=== PATIENT | female | born 1935 | race Caucasian/White ===

== ENCOUNTER 2016-11-29 05:36 | Observation (INO) | payer OTHER ==
--- NOTE | ~2016-11-29 | EKG ---
PATIENT: CHRISTEL HESS UNIT #: [id number] Ventricular Rate: 60 BPM Atrial Rate: 60 BPM P-R Interval: 196 ms QRS Duration: 88 ms Q-T Interval: 456 ms QTC Calculation(Bezet): 456 ms P Bandera: 80 degrees Calculated R Bandera: 71 degrees Calculated T Bandera: 67 degrees Diagnosis Line: Normal sinus rhythm Diagnosis Line: Normal ECG Diagnosis Line: When compared with ECG of 04-FEB-2015 10:12, Diagnosis Line: No significant change was found Diagnosis Line: Confirmed by REN BARRON MD ([id number]) on Diagnosis Line: 12/01/2016 1:12:58 PM INTERPRETING MD: FESTUS
--- NOTE | ~2016-11-29 | HP ---
Unit #: [id number] #: [id number] Patient: CHRISTEL HESS [id number] [facility] [place] [facility]. [place], [place] [address] [id number] E MR#: [id number] NAME: CHRISTEL HESS ROOM: Age: 81 Sex: F Admission Date: 11/29/2016 : 1935 Attending Physician: Landy Monroe Pa-C Primary Care Physician: Misty King M.D. HISTORY AND PHYSICAL CHIEF COMPLAINT Nausea, vomiting, abdominal pain. HISTORY OF PRESENT ILLNESS The patient is an 81-year-old female with past medical history of end-stage renal disease on dialysis, hypertension, hyperlipidemia, diastolic dysfunction, renal artery stenosis, gout, chronic anemia who presented to the emergency department for evaluation of the above. The patient states that she was in her usual state of health until the morning of admission when she felt dizzy. She had been working in the yard on the day prior to admission planting [employer] and states that she felt somewhat tired on the evening prior to admission. She decided she would go to bed early. She woke from sleep around 2:30 on the morning of admission to use the bathroom and felt like the room was "spinning." She states that she had loose stool. She went back to sleep. She ultimately woke up and the dizzy feeling persisted. She states that it is similar to when she has had vertigo in the past. She felt generally weak. She has had a total of four bouts of nonbloody diarrhea. She states that she did have some associated abdominal cramping that is now resolved. She has also had nausea but no vomiting. Upon arrival in the emergency department, initial pulse and blood pressure were 70 and 150/64 respectively. Laboratory is notable for potassium of 6.1, BUN and creatinine 69 and 6.9 respectively. She is currently receiving dialysis. She also received calcium gluconate as well as 10 units of regular insulin, an amp of D50 and an amp of sodium bicarb in the emergency department. She is being admitted to [facility] for evaluation and further treatment. PAST MEDICAL HISTORY 1. Admission to [facility], August 20 through August 21, 2013, for acute pulmonary edema. She underwent an echocardiogram during that admission that showed an ejection fraction of 50% to 55% with nfax-nv-okbcjrwk mitral regurgitation, erfe-cj-vngfeann tricuspid regurgitation, mild pulmonic valvular regurgitation. Right ventricular systolic pressure was elevated at 50 mmHg. 2. Diastolic dysfunction with ejection fraction of 50% to 55% on echocardiogram from August 2013. The patient has seen Dr. Núñez in the past. 3. End-stage renal disease on dialysis: The patient receives dialysis Monday, , Monday. She is followed by Dr. Saldana. 4. Hypertension. Unit #: [id number] #: [id number] Patient: CHRISTEL HESS 5. Hyperlipidemia. 6. History of renal artery stenosis, status post angioplasty on one side and stent placement on the other. 7. Gout. 8. Pulmonary hypertension. 9. Chronic anemia. PAST SURGICAL HISTORY 1. Renal artery angioplasty/stent placement. 2. Fistula placement for dialysis. SOCIAL HISTORY The patient lives with her . She stopped smoking over 45 years ago. There is no alcohol. FAMILY HISTORY Notable for coronary artery disease. ALLERGIES Sulfa. HOME MEDICATIONS 1. Vitamin D 1000 units daily. 2. Zyloprim 100 mg daily. 3. Cranberry 200 mg daily. 4. Lasix 20 mg daily. 5. Norvasc 10 mg daily. 6. Losartan 50 mg twice daily. 7. Toprol XL 100 mg twice daily. 8. Lipitor 20 mg daily. REVIEW OF SYSTEMS A complete review of systems is negative except as indicated in the HPI. DIAGNOSTIC STUDIES LABORATORY: Troponin is less than 0.05. Comprehensive metabolic panel notable for potassium of 6.1, CO2 of 20, BUN and creatinine 69 and 6.9 respectively. Alkaline phosphatase is 113. Lipase is 84. Urinalysis is notable for 3+ protein. Complete blood count notable for hemoglobin and hematocrit of 10.2 and 31.7 respectively. IMAGING: Chest x-ray shows slight interval increase in size of the cardiac silhouette with pulmonary venous distention and mild diffuse interstitial change concerning for mild interstitial edema. CARDIOVASCULAR: EKG shows normal sinus rhythm with rate of 60 beats per minute. T waves are peaked in the lateral leads. PHYSICAL EXAMINATION VITAL SIGNS: Temperature is 97.7, pulse 70, respirations 16, blood pressure 150/64, oxygen saturation is 98% on room air. GENERAL: The patient is a female who is awake and alert in no acute distress. HEENT: The head is atraumatic. Mucous membranes are moist. NECK: Supple. Trachea is midline. CARDIOVASCULAR: Regular rate and rhythm. LUNGS: Clear to auscultation bilaterally with no increased work of breathing. Unit #: [id number] #: [id number] Patient: CHRISTEL HESS ABDOMEN: Soft, nontender with bowel sounds present in all four quadrants. EXTREMITIES: Nontender with no pedal edema. NEUROLOGIC: The patient is awake and alert. She follows commands. PSYCHIATRIC: Mood and affect are normal. The patient is cooperative. SKIN: Skin of examined areas is warm and dry. ASSESSMENT The patient is an 81-year-old female: 1. Hyperkalemia: The patient received calcium gluconate, 10 units of regular insulin, an amp of D50, an amp of bicarb in the emergency department. She is currently receiving dialysis. She is on Losartan which could be contributing as well. 2. End-stage renal disease on dialysis Monday, , Monday. 3. Vertigo. 4. General weakness. 5. Hypertension. 6. Hyperlipidemia. 7. Diastolic dysfunction with ejection fraction as noted above. 8. Renal artery stenosis, status post angioplasty and stent placement. 9. Gout. 10. Chronic anemia: The patient's hemoglobin was 12.7 on February 04, 2015. It is 10.2 today. PLAN 1. Admit to intermediate level for observation. 2. Healthy heart renal diet. 3. Bedrest. 4. Fall precautions. 5. PT/OT to evaluate and treat. 6. Orthostatics q. shift. 7. Consult Dr. Leslie regarding end-stage renal disease and hyperkalemia. 8. Serial cardiac enzymes. 9. Strict ins and outs. 10. Hold Losartan due to hyperkalemia. 11. P.r.n. Zofran. 12. Repeat labs in the morning. 13. Additional workup and consultants based on above. 14. SCDs for deep venous thrombosis prophylaxis. Dictated by Francesca Roth M.D. Howard TD: 11/29/2016 12:23 JOB #: [id number] Unit #: [id number] #: [id number] Patient: CHRISTEL HESS HISTORY AND PHYSICAL Page 1 of 1 X Francesca Roth MD X HISTORY AND PHYSICAL
--- NOTE | ~2016-11-29 | CO ---
Unit #: [id number] #: [id number] Patient: CHRISTEL DAILY [id number] [address] [address] [id number] I MR#: [id number] NAME: CHRISTEL DAILY. ROOM: 337 Age: 81 Sex: F Admission Date: 11/29/2016 : 1935 Attending Physician: Francesca Roth M.D. Primary Care Physician: Misty King M.D. Consultation Date: 11/29/2016 CONSULTATION REPORT REASON FOR CONSULT Hyperkalemia and dialysis needs. HISTORY OF PRESENT ILLNESS Ms. Daily is a very pleasant 81-year-old white female, who states that she has been on dialysis for about two years with Dr. Malachi Saldana, who was admitted for various complaints including some vertigo and dizziness-type symptoms with abdominal pain, dry heaves, and some loose bowel movements overnight. The patient states that she worked out in her yard potting plants and carrying things for a good portion of the day yesterday when it was fairly warm outside. She says that she thinks she "over did it." I was called because of hyperkalemia on morning labs. She has not had dialysis since her scheduled treatment on Monday. She denies any chest discomfort or shortness of breath. No urinary complaints, no fevers or chills. PAST MEDICAL HISTORY Significant for: 1. End stage renal disease. 2. Hypertension. 3. Diastolic congestive heart failure. 4. Renal artery stenosis with previous stenting. 5. Gout. 6. Hyperlipidemia. 7. Secondary hyperparathyroidism. PAST SURGICAL HISTORY 1. She has had renal artery stents. 2. She has had a fistula placed in her arm. MEDICATIONS Home meds are as follows: 1. Losartan 50 mg twice a day. 2. Toprol XL 100 mg twice a day. 3. Lipitor 20 mg a day. 4. Vitamin D daily. 5. Allopurinol 100 mg a day. 6. Cranberry extract daily. 7. Lasix 20 mg a day. 8. Norvasc 10 mg a day. ALLERGIES She has a coded allergy to sulfa drugs. Unit #: [id number] #: [id number] Patient: CHRISTEL DAILY FAMILY HISTORY Noncontributory to the current issues. SOCIAL HISTORY She is . I did discuss these issues with her who is hard of hearing. She is a former smoker. No alcohol or drug abuse. REVIEW OF SYSTEMS A complete twelve point review of systems was completed with the above findings. In addition, she has not had a headache. No nosebleed, sore throat or earache. No chest pain or palpitations. No cough or hemoptysis, no hematemesis. No bright red blood per rectum or melena. No dysuria or hematuria. No swelling, no rashes, no itching, no flank pain, no chills, no night sweats or hot flashes no intolerance to heat or cold, no bleeding issues. Unless otherwise indicated, the review of systems was negative PHYSICAL EXAMINATION VITAL SIGNS: The patient is afebrile. Pulse 64, respiratory rate 16, blood pressure 134/109. GENERAL: This is a pleasant 81-year-old white female who is alert and oriented, currently in no acute distress. HEENT: Head is atraumatic, normocephalic. Eyes show pink conjunctivae but no scleral icterus. No nasal drainage or nosebleed. Oropharynx is slightly dry. No thrush. NECK: No rigidity. HEART: Regular rate and rhythm with a soft murmur present. No rub appreciated. LUNGS: Clear anteriorly with no wheezing or rhonchi. Breathing is nonlabored. ABDOMEN: Soft, nontender. Bowel sounds are present. EXTREMITIES: No lower extremity clubbing, cyanosis or pitting edema. SKIN: Dry without rashes. MUSCULOSKELETAL: No joint effusions noted. VASCULAR EXAM: The patient does have an arm fistula in place with good bruit and thrill. NEUROLOGICAL EXAM: Cranial nerves are grossly intact with no gross motor deficits. LYMPHATIC EXAM: There is no neck cervical lymphadenopathy. PSYCHIATRIC EXAM: Mood and affect appear normal. DIAGNOSTIC STUDIES LABORATORY: Troponin was negative. Chemistry this morning - potassium was 6.1, bicarb 20, BUN and creatinine 69 and 6.9 respectively. Lipase was just a little high at 84. Urinalysis did show 3+ protein, otherwise unremarkable. CBC was remarkable only for a hemoglobin of 10.2. ASSESSMENT AND PLAN 1. Hyperkalemia: The patient received emergent treatment in the emergency room with calcium gluconate, insulin and bicarb. I called in stat dialysis and they are here getting ready to start. This should correct her hyperkalemia. 2. End stage renal disease: Her normal dialysis days are Monday, , Monday and we will keep her on that schedule while she is Unit #: [id number] #: [id number] Patient: CHRISTEL DAILY here. 3. Hypertension: Home medicines can be renewed. 4. History of diastolic congestive heart failure with pulmonary hypertension: She appears well compensated today. 5. History of renovascular disease and stenting. 6. Recent dizziness and vertigo which seems to have improved. She may actually have gotten herself a little dehydrated yesterday working in the yard. 7. History of GI upset. Medicine will be admitting and working up. I would like to thank you for this consultation and the opportunity to participate in the evaluation and care of Ms. Daily. Dictated by... Jasbir Leslie Jr., M.D. NINA/katy TD: 11/30/2016 06:06 JOB #: [id number] CONSULTATION REPORT Page 1 of 1 X Jasbir Leslie MD CONSULTATION REPORT
--- NOTE | ~2016-11-29 | DS ---
Unit #: [id number] #: [id number] Patient: CHRISTEL HESS [id number] [address] [address] [id number] I MR#: [id number] NAME: CHRISTEL HESS. ROOM: 337 Age: 81 Sex: F Admission Date: 11/29/2016 : 1935 Discharge Date: 11/30/2016 Attending Physician: Sergio Shanks M.D. Primary Care Physician: Misty King M.D. DISCHARGE SUMMARY DISCHARGE DIAGNOSES 1. Hyperkalemia, resolved after treatment with Kayexalate, calcium gluconate, sodium bicarbonate as well as emergent dialysis. 2. End-stage renal disease on dialysis Monday, , and Monday followed by Dr. Saldana. 3. Possible acute gastroenteritis, resolved at this time. 4. Essential hypertension. 5. History of diastolic heart failure fluid balance. 6. Dizziness, no syncope. 7. History of dyslipidemia. 8. Chronic anemia. 9. History of gout. 10. History of renal artery stenosis. PROCEDURE The patient had an emergent dialysis under Dr. Leslie's orders on admission. CONSULTANTS Nephrology, Dr. Leslie and Dr. Saldana. DIAGNOSTIC STUDIES LABORATORY: Today's labs include BMP of glucose 83, BUN 30, creatinine 4.4, sodium 137, potassium 4.8, chloride 102, CO2 is 25, calcium 8.2, protein 6.0, albumin 3.1, total bilirubin 0.6, direct bilirubin 0.1, indirect bilirubin 0.5, AST 23, ALT 16, alkaline phosphatase 102. Lipase 84. Cardiac enzymes were unremarkable. CBC with WBC 6.4, RBC 3.15, hemoglobin 9.4, hematocrit 29.4, MCV 93.4, MCH 29.8, MCHC 31.9, RDW 14.0, platelets 139, MPV 8.1. Urinalysis unremarkable. IMAGING: Chest x-ray 11/29/2016. Impression: Slight interval increase in size of the cardiac silhouette with pulmonary venous distention and mild diffuse interstitial change, most concerning for mild interstitial edema. No pleural effusion is seen. HOSPITAL COURSE The patient is a pleasant 81-year-old female with past medical history of renal artery stenosis, status post stenting; end-stage renal disease on dialysis followed by Dr. Saldana on Monday, , and Monday; diastolic heart failure with an ejection fraction of 50% to 55%; essential hypertension; hyperlipidemia; gout; pulmonary artery hypertension; chronic anemia who was brought to the emergency room due to symptoms of nausea, vomiting, abdominal pain and dizziness. The patient states that she had planted some armida bushes on the day prior to admission. She came in drank Unit #: [id number] #: [id number] Patient: CHRISTEL HESS J a lot of water, went to bed, took and Ambien and woke up with symptoms of nausea and vomiting and feeling that everything was spinning. She had googled the symptoms and felt that the "vertigo" needed to be assessed. Therefore, she presented to the emergency department for further evaluation. In the emergency department, she was found to have stable vitals but with potassium 6.1, BUN 68, creatinine 6.9. She was given calcium gluconate as well as 10 amps of Regular insulin and D50 amp as well as an amp of bicarb. Nephrology with Dr. Leslie was notified who had written order for emergent dialysis and patient was admitted for further evaluation. At the time of my assessment, symptoms of dizziness and nausea and vomiting. The patient stated that she had diarrhea only with the Kayexalate that was given. At this time, patient stated that she felt that she is back to her normal baseline. Dr. Saldana had seen her this morning and had felt that patient is stable for discharge. The patient will follow up with Nephrology as outpatient to continue with dialysis Monday, , and Monday. DISCHARGE CONDITION Stable. DISCHARGE DISPOSITION To home. FOLLOWUP She is to follow up with Nephrology routinely. DIET Resume her renal diet. DISCHARGE MEDICATIONS 1. Xanax 0.5 mg p.o. h.s. 2. Cranberry 200 mg p.o. daily. 3. Norvasc 10 mg p.o. daily. 4. Toprol XL 100 mg p.o. b.i.d. 5. Lasix 20 mg p.o. daily. 6. Lipitor 20 mg p.o. daily. 7. Losartan 50 mg p.o. b.i.d. 8. Allopurinol 100 mg p.o. daily. 9. Vitamin D 1000 units p.o. daily. Dictated by... Anshul Lewis PA-C for Harriet May/leana TD: 12/01/2016 21:52 JOB #: [id number] Unit #: [id number] #: [id number] Patient: CHRISTEL HESS DISCHARGE SUMMARY Page 1 of 1 X X DISCHARGE SUMMARY
--- NOTE | ~2016-11-29 | CR72 ---
[facility] A Service of [facility] & [facility] RADIOLOGY TEXT RESULTS PATIENT: CHRISTEL HESS [facility] [id number] : [birth year] UNIT #: [id number] AGE: [address]: Francesca Roth MD SEX: F ORDER DR: [id number] [facility] [place] [address] [facility]. [place], [place] [address] [id number] E MR#: [id number] Acc #: [id number] NAME: CHRISTEL HESS : 1935 SEX: F STUDY DATE/TIME: 11/29/2016 08:27 UNIT: [facility] ROOM: STUDY DESCRIPTION: CR Chest Single View Portable Attending Physician: Landy Monroe Pa-C Ordering Physician: Landy Monroe Pa-C Primary Care Physician: Misty King M.D. MEDICAL IMAGING REPORT This report is preliminary unless electronic signature is present EXAM Chest portable 11/29/2016 0844 hours CLINICAL HISTORY 81-year-old with weakness, dizziness and shortness of air this morning. COMPARISON 02/04/2015 FINDINGS Portable upright chest demonstrates mild cardiac enlargement increased from 02/04/2015. There is pulmonary venous distension and mild diffuse bilateral interstitial change likely mild edema. There are no effusions. IMPRESSION Slight interval increase in size of the cardiac silhouette with pulmonary venous distension and mild diffuse interstitial change most concerning for a mild interstitial edema. No pleural effusion is seen. Dictated by... Razia White M.D. THIS IS AN ELECTRONICALLY VERIFIED REPORT Razia White M.D. at 11/29/2016 2:30 PM MELODIE/huan TD: 11/29/2016 11:15 JOB #: [id number] MEDICAL IMAGING REPORT Page 1 of 1 COPY
[~2016-11-29 05:36] MED LIST: ALPRAZOLAM PO; ANTIVERT PO; CLONIDINE PO; CLONIDINE TOP; CRANBERRY SUPPLEMENT PO; DEMADEX PO; FERROUS SU325 ( 65 ) PO; FISH OIL 1,0001 CAP PO; HYDRALAZINE HC100 MG PO; LASIX PO; LIPITOR PO; LIPITOR20 MG PO; LISINOPRIL PO; MULTI-VITAMIN1 TAB PO; NORVASC PO; TOPROL XL PO; TOPROL XL100 MG PO; TYLOX 5/500 CAP1 CAP PO; VITAMIN D 4001 UDTAB PO; VITAMIN D1000 UNIT PO; XANAX0.5 M1 PO; ZEMPLAR1 MCG PO; ZYLOPRIM PO; ZYLOPRIM100 MG PO
[2016-11-29 08:15] LABS: BASOPHIL% 0.6 % (0-2.5); EOSINOPHIL% 0.5 % (0.0-7.0); HEMATOCRIT 31.7 % (35.0-45.0); HEMOGLOBIN 10.2 gm/dL (12.0-16.0); LYMPHOCYTE# 1.1 X10e3 (1.0-3.5); LYMPHOCYTE% 15.6 % (17.0-45.0); MEAN CORPUSCULAR HEMOGLOBIN 29.9 PG (28-34); MEAN CORPUSCULAR HGB CONC 32.1 g/dL (30-36); MEAN PLATELET VOLUME 7.4 FL (6.5-11.5); MONOCYTE# 0.4 X10e3 (0-1.0); MONOCYTE% 5.1 % (3.0-12.0); NEUTROPHIL# 5.5 X10e3 (1.5-7.1); NEUTROPHIL% 78.2 % (40-75); PLATELET COUNT 142 X10e3 (140-420); RED BLOOD COUNT 3.42 X10e (3.90-5.30); RED CELL DISTRIBUTION WIDTH 17.9 % (11.0-15.5); WHITE BLOOD COUNT 7.1 X10e3 (4.0-10.5)
[2016-11-29 08:15] LABS: URINE SOURCE CLEAN CATCH
[2016-11-29 08:16] LABS: DIFF IND NO
[2016-11-29 08:24] LABS: URINE APPEARANCE CLEAR; URINE BILIRUBIN NEG (NEG); URINE BLOOD TRACE (NEG); URINE COLOR YELLOW; URINE GLUCOSE NEG (NEG); URINE KETONE NEG (NEG); URINE LEUKOCYTE ESTERASE NEG (NEG); URINE NITRATE NEG (NEG); URINE PROTEIN 3+ (NEG); URINE UROBILINOGEN 0.2 MG/DL (NEG)
[2016-11-29 08:27] LABS: URBCS1 AUWI 0-2 /[HPF] (0-2); URINE BACTERIA AUWI NEG (NEGATIVE); URINE SQUAMOUS EPITHELIAL CELL NONE SEEN /[HPF]; UWBCS1 AUWI 0-2 (0-5)
[2016-11-29 08:29] LABS: CULTURE INDICATED? NO
[2016-11-29 08:42] LABS: ALBUMIN SERUM 3.9 g/dL (3.5-5.0); BILIRUBIN, DIRECT 0.1 mg/dL (0.0-0.2); BILIRUBIN,INDIRECT 0.5 mg/dL (0.0-0.9); BILIRUBIN,TOTAL 0.6 mg/dL (0.2-2.0); CALCIUM SERUM 8.4 mg/dL (8.4-10.2); CREATININE SERUM 6.9 mg/dL (0.6-1.4); PROTEIN TOTAL SERUM 7.5 g/dL (6.0-8.3)
[2016-11-29 08:45] LABS: POTASSIUM 6.1 mmol/L (3.5-5.1)
[2016-11-29 09:20] LABS: POC - CKMB 1.3 ng/mL (0.0-7.9); POC - TROPONIN <0.05 ng/mL (<=0.05)
[2016-11-29] MEDS ORDERED: ZYLOPRIM100 MG PO (10:05)
[2016-11-29] MEDS ORDERED: LOSARTAN POTASS50 MG PO (10:06)
[2016-11-29 15:18] LABS: CK TOTAL 50 IU/L (26-140)
[2016-11-29] MEDS ORDERED: XANAX0.5 M1 PO (15:43)
[2016-11-29 21:34] LABS: CK TOTAL 50 IU/L (26-140)
[2016-11-30 05:48] LABS: HEMATOCRIT 29.4 % (35.0-45.0); HEMOGLOBIN 9.4 gm/dL (12.0-16.0); MEAN CELL VOLUME 93.4 FL (83-96); MEAN CORPUSCULAR HEMOGLOBIN 29.8 PG (28-34); MEAN CORPUSCULAR HGB CONC 31.9 g/dL (30-36); MEAN PLATELET VOLUME 8.1 FL (6.5-11.5); RED BLOOD COUNT 3.15 X10e (3.90-5.30); WHITE BLOOD COUNT 6.4 X10e3 (4.0-10.5)
[2016-11-30 06:57] LABS: ALBUMIN SERUM 3.1 g/dL (3.5-5.0); BILIRUBIN,TOTAL 0.6 mg/dL (0.2-2.0); BUN/CREATININE RATIO 6.81; CALCIUM SERUM 8.2 mg/dL (8.4-10.2); GLOM FILT RATE Estimated 8.7 mL/min (>60); POTASSIUM 4.8 mmol/L (3.5-5.1)
[2016-11-30 07:10] LABS: CREATININE SERUM 4.4 mg/dL (0.6-1.4)
[2017-03-10] MEDS ORDERED: ZYLOPRIM100 MG PO (05:42)
[2017-03-10] MEDS ORDERED: FLONASE 0.05% N16 G1 (05:43)
[2017-03-10] MEDS ORDERED: CRANBERRY200 MG PO (10:05)
[2017-03-10] MEDS ORDERED: VITAMIN D1000 UNIT PO (10:05)
[2017-03-10] MEDS ORDERED: LASIX20 MG PO (10:05)
[2017-03-10] MEDS ORDERED: LOSARTAN POTASS50 MG PO (10:06)
[2017-03-10] MEDS ORDERED: NORVASC10 MG PO (10:06)
[2017-03-10] MEDS ORDERED: TOPROL XL100 MG PO (10:06)
[2017-03-10] MEDS ORDERED: LIPITOR20 MG PO (10:06)
[2017-03-10] MEDS ORDERED: CATAPRES0.1 MG PO (15:02)
[2017-03-10] MEDS ORDERED: XANAX0.5 M1 PO (16:30)
== END 2016-11-30 17:52 | disposition home or self-care (01) ==
LOC: CED 05:36 → CEDOF 12:05 → C3A PCU 12:36 → CED 12:36 → C3A PCU 12:36 → CEDOF 15:22 → C3A PCU 15:22
PROVIDERS: Family Medicine; Physician Assistant Medical
DX: E87.5 Hyperkalemia (principal); I13.2 Hypertensive heart and chronic kidney disease with heart failure and with stage 5 chronic kidney disease, or end stage renal disease; N18.6 End stage renal disease; I50.30 Unspecified diastolic (congestive) heart failure; Z99.2 Dependence on renal dialysis; D63.1 Anemia in chronic kidney disease; I51.7 Cardiomegaly; I27.2 Other secondary pulmonary hypertension; E78.5 Hyperlipidemia, unspecified; R53.1 Weakness; R42 Dizziness and giddiness; M10.9 Gout, unspecified; Z79.899 Other long term (current) drug therapy; Z87.891 Personal history of nicotine dependence; Z82.49 Family history of ischemic heart disease and other diseases of the circulatory system; Z95.820 Peripheral vascular angioplasty status with implants and grafts; Z88.2 Allergy status to sulfonamides
CPT/HCPCS: 71010; 80048; 80053; 80076; 81003; 82550; 82553; 83690; 84484; 85025; 85027; 87340; 93005; 96374; 96375; 97161; 97165; 99291; G0378; G8978-GP; G8979-GP; G8980-GP; G8987-GO; G8988-GO; G8989-GO; J1644; J2405

== ENCOUNTER 2016-12-14 02:44 | Emergency (ER) | payer OTHER ==
--- NOTE | ~2016-12-14 | CR72 ---
[facility] A Service of [facility] & [facility] RADIOLOGY TEXT RESULTS PATIENT: CHRISTEL HESS LOCATION: [facility] : [birth year] UNIT #: [id number] AGE: [address]: Stacy Maddox MD SEX: F ORDER DR: [id number] [facility] [address] [facility]. [place], [place] [address] [id number] E MR#: [id number] Acc #: [id number] NAME: CHRISTEL HESS : 1935 SEX: F STUDY DATE/TIME: 12/14/2016 3:38 UNIT: [facility] ROOM: STUDY DESCRIPTION: CR Chest Single View Portable Attending Physician: Stacy Maddox M.D. Ordering Physician: Stacy Maddox M.D. Primary Care Physician: Misty King M.D. MEDICAL IMAGING REPORT This report is preliminary unless electronic signature is present EXAM Chest x-ray 12/14/2016 HISTORY 81-year-old female in the ED complaining of new onset shortness of air beginning earlier tonight. History of congestive heart failure. Renal dialysis. TECHNIQUE AP portable chest x-ray. FINDINGS Mild cardiomegaly is stable. Pulmonary venous redistribution, mild diffuse interstitial edema and tiny bilateral pleural effusions, new or increased since 11/29/2016, compatible with congestive heart failure. Thoracolumbar spinal curvature. Old healed right proximal humerus fracture. IMPRESSION Cardiomegaly with vascular congestion including mild interstitial edema and tiny pleural effusions. Dictated by... Marc Marie M.D. THIS IS AN ELECTRONICALLY VERIFIED REPORT Marc Marie M.D. at 12/14/2016 5:52 AM KEY/tejal TD: 12/14/2016 04:29 JOB #: [id number] [facility] A Service of [facility] & [facility] RADIOLOGY TEXT RESULTS PATIENT: CHRISTEL HESS LOCATION: [facility] : [birth year] UNIT #: [id number] AGE: [address]: Stacy Maddox MD SEX: F ORDER DR: MEDICAL IMAGING REPORT Page 1 of 1 COPY
--- NOTE | ~2016-12-14 | EKG ---
PATIENT: CHRISTEL HESS UNIT #: [id number] Ventricular Rate: 62 BPM Atrial Rate: 62 BPM P-R Interval: 188 ms QRS Duration: 86 ms Q-T Interval: 450 ms QTC Calculation(Bezet): 456 ms P Pendleton: 78 degrees Calculated R Pendleton: 58 degrees Calculated T Pendleton: 71 degrees Diagnosis Line: Normal sinus rhythm Diagnosis Line: Normal ECG Diagnosis Line: When compared with ECG of 29-NOV-2016 08:39, Diagnosis Line: Nonspecific T wave abnormality now evident in Diagnosis Line: Anterior leads Diagnosis Line: Confirmed by ERIC MILLIGAN MD ([id number]) on 12/15/2016 Diagnosis Line: 6:26:25 PM INTERPRETING MD: SRINI MOLINA
[~2016-12-14 02:44] MED LIST changes: +LOSARTAN POTASS50 MG PO
[2016-12-14 03:46] LABS: POC - CKMB 1.3 ng/mL (0.0-7.9); POC - TROPONIN <0.05 ng/mL (<=0.05)
[2016-12-14 03:52] LABS: BASOPHIL# 0.1 X10e3 (0-0.3); BASOPHIL% 0.6 % (0-2.5); DIFF IND NO; EOSINOPHIL# 0.2 X10e3 (0-0.7); EOSINOPHIL% 1.8 % (0.0-7.0); HEMATOCRIT 28.1 % (35.0-45.0); HEMOGLOBIN 9.1 gm/dL (12.0-16.0); LYMPHOCYTE% 10.8 % (17.0-45.0); MEAN CELL VOLUME 93.5 FL (83-96); MEAN CORPUSCULAR HEMOGLOBIN 30.4 PG (28-34); MEAN CORPUSCULAR HGB CONC 32.5 g/dL (30-36); MEAN PLATELET VOLUME 7.3 FL (6.5-11.5); MONOCYTE# 0.8 X10e3 (0-1.0); MONOCYTE% 8.5 % (3.0-12.0); NEUTROPHIL# 7.1 X10e3 (1.5-7.1); NEUTROPHIL% 78.3 % (40-75); PLATELET COUNT 162 X10e3 (140-420); RED CELL DISTRIBUTION WIDTH 19.2 % (11.0-15.5)
[2016-12-14 04:06] LABS: PARTIAL THROMBOPLASTIN TIME 27.8 SECONDS (23.5-31.3)
[2016-12-14 04:19] LABS: ALBUMIN SERUM 3.5 g/dL (3.5-5.0); BILIRUBIN, DIRECT 0.1 mg/dL (0.0-0.2); BILIRUBIN,INDIRECT 0.8 mg/dL (0.0-0.9); BILIRUBIN,TOTAL 0.9 mg/dL (0.2-2.0); BUN/CREATININE RATIO 6.38; CALCIUM SERUM 8.3 mg/dL (8.4-10.2); CREATININE SERUM 4.7 mg/dL (0.6-1.4); MAGNESIUM 1.9 mg/dL (1.6-3.0); POTASSIUM 4.1 mmol/L (3.5-5.1); PROTEIN TOTAL SERUM 7.1 g/dL (6.0-8.3)
[2016-12-14 05:53] LABS: POC - CKMB 1.1 ng/mL (0.0-7.9); POC - TROPONIN <0.05 ng/mL (<=0.05)
[2017-03-10] MEDS ORDERED: ZYLOPRIM100 MG PO (05:42)
[2017-03-10] MEDS ORDERED: FLONASE 0.05% N16 G1 (05:43)
[2017-03-10] MEDS ORDERED: CRANBERRY200 MG PO (10:05)
[2017-03-10] MEDS ORDERED: LASIX20 MG PO (10:05)
[2017-03-10] MEDS ORDERED: VITAMIN D1000 UNIT PO (10:05)
[2017-03-10] MEDS ORDERED: LOSARTAN POTASS50 MG PO (10:06)
[2017-03-10] MEDS ORDERED: TOPROL XL100 MG PO (10:06)
[2017-03-10] MEDS ORDERED: LIPITOR20 MG PO (10:06)
[2017-03-10] MEDS ORDERED: NORVASC10 MG PO (10:06)
[2017-03-10] MEDS ORDERED: CATAPRES0.1 MG PO (15:02)
[2017-03-10] MEDS ORDERED: XANAX0.5 M1 PO (16:30)
== END 2016-12-14 07:25 | disposition home or self-care (01) ==
LOC: CED 02:44
PROVIDERS: Emergency Medicine
DX: I13.2 Hypertensive heart and chronic kidney disease with heart failure and with stage 5 chronic kidney disease, or end stage renal disease (principal); I50.30 Unspecified diastolic (congestive) heart failure; N18.6 End stage renal disease; R09.02 Hypoxemia; E78.5 Hyperlipidemia, unspecified; Z88.2 Allergy status to sulfonamides; Z79.899 Other long term (current) drug therapy
CPT/HCPCS: 71010; 80048; 80076; 82553; 83605; 83735; 84100; 84484; 85025; 85610; 85730; 93005; 99285

== ENCOUNTER 2017-02-09 05:09 | Emergency (ER) | payer OTHER ==
[~2017-02-09] VITALS: Ht 167.6 cm; Wt 63.5 kg
--- NOTE | ~2017-02-09 | CR72 ---
[facility] A Service of [facility] & [facility] RADIOLOGY TEXT RESULTS PATIENT: CHRISTEL HESS LOCATION: [facility] : [birth year] UNIT #: [id number] AGE: [address]: Tremaine Cast MD SEX: F ORDER DR: [id number] [facility] [address] [place], [place] [address] [id number] E MR#: [id number] Acc #: [id number] NAME: CHRISTEL HESS : 1935 SEX: F STUDY DATE/TIME: 02/09/2017 5:59 UNIT: [facility] ROOM: STUDY DESCRIPTION: CR Chest Single View Portable Attending Physician: Tremaine Cast M.D. Referring Physician: Misty King M.D. Ordering Physician: Venu Zambrano M.D. Primary Care Physician: Misty King M.D. MEDICAL IMAGING REPORT This report is preliminary unless electronic signature is present EXAM Portable chest HISTORY Cough, shortness of air onset this morning. History of CHF. COMPARISON 12/14/2016. FINDINGS Portable view of the chest demonstrates cardiomegaly. There is diffuse bilateral interstitial and alveolar infiltrates with increased pulmonary vascularity. Findings most compatible with CHF. Slight blunting of both CP angles suggests small effusions. Mild aortic atherosclerotic changes. No invasive tubes or lines. No pneumothorax. Dictated by... Nick Rutherford M.D. THIS IS AN ELECTRONICALLY VERIFIED REPORT Nick Rutherford M.D. at 02/09/2017 4:00 PM NE/norm TD: 02/09/2017 07:50 JOB #: [id number] MEDICAL IMAGING REPORT Page 1 of 1 COPY
--- NOTE | ~2017-02-09 | EKG ---
PATIENT: CHRISTEL HESS UNIT #: [id number] Ventricular Rate: 70 BPM Atrial Rate: 70 BPM P-R Interval: 162 ms QRS Duration: 78 ms Q-T Interval: 422 ms QTC Calculation(Bezet): 455 ms P [place]burn[place]: 81 degrees Calculated R [place]: 69 degrees Calculated T [place]: 61 degrees Diagnosis Line: Sinus rhythm with frequent Premature ventricular Diagnosis Line: complexes Diagnosis Line: Possible Left atrial enlargement Diagnosis Line: Borderline ECG Diagnosis Line: No previous ECGs available Diagnosis Line: Confirmed by ERIC MILLIGAN MD ([id number]) on 02/11/2017 Diagnosis Line: 8:11:17 AM INTERPRETING MD: SRINI MOLINA
[2017-02-09 06:29] LABS: BASOPHIL# 0.1 X10e3 (0-0.3); BASOPHIL% 0.8 % (0-2.5); EOSINOPHIL# 0.2 X10e3 (0-0.7); EOSINOPHIL% 1.6 % (0.0-7.0); HEMATOCRIT 33.9 % (35.0-45.0); HEMOGLOBIN 10.9 gm/dL (12.0-16.0); LYMPHOCYTE# 1.3 X10e3 (1.0-3.5); MEAN CELL VOLUME 94.3 FL (83-96); MEAN CORPUSCULAR HEMOGLOBIN 30.4 PG (28-34); MEAN CORPUSCULAR HGB CONC 32.2 g/dL (30-36); MEAN PLATELET VOLUME 7.2 FL (6.5-11.5); MONOCYTE% 8.9 % (3.0-12.0); NEUTROPHIL# 8.2 X10e3 (1.5-7.1); NEUTROPHIL% 76.7 % (40-75); PLATELET COUNT 165 X10e3 (140-420); RED CELL DISTRIBUTION WIDTH 18.6 % (11.0-15.5); WHITE BLOOD COUNT 10.7 X10e3 (4.0-10.5)
[2017-02-09 06:31] LABS: DIFF IND NO
[2017-02-09 06:38] LABS: PARTIAL THROMBOPLASTIN TIME 27.8 SECONDS (23.5-31.3); PROTHROMBIN TIME (PATIENT) 11.1 SECONDS (10.0-11.7)
[2017-02-09 06:50] LABS: ALBUMIN SERUM 3.8 g/dL (3.5-5.0); BILIRUBIN, DIRECT 0.2 mg/dL (0.0-0.2); BILIRUBIN,INDIRECT 0.7 mg/dL (0.0-0.9); BILIRUBIN,TOTAL 0.9 mg/dL (0.2-2.0); BUN/CREATININE RATIO 6.42; CALCIUM SERUM 8.5 mg/dL (8.4-10.2); POTASSIUM 4.8 mmol/L (3.5-5.1); PROTEIN TOTAL SERUM 7.3 g/dL (6.0-8.3)
[2017-03-10] MEDS ORDERED: ZYLOPRIM100 MG PO (05:42)
[2017-03-10] MEDS ORDERED: FLONASE 0.05% N16 G1 (05:43)
[2017-03-10] MEDS ORDERED: VITAMIN D1000 UNIT PO (10:05)
[2017-03-10] MEDS ORDERED: CRANBERRY200 MG PO (10:05)
[2017-03-10] MEDS ORDERED: LASIX20 MG PO (10:05)
[2017-03-10] MEDS ORDERED: LOSARTAN POTASS50 MG PO (10:06)
[2017-03-10] MEDS ORDERED: TOPROL XL100 MG PO (10:06)
[2017-03-10] MEDS ORDERED: NORVASC10 MG PO (10:06)
[2017-03-10] MEDS ORDERED: LIPITOR20 MG PO (10:06)
[2017-03-10] MEDS ORDERED: CATAPRES0.1 MG PO (15:02)
[2017-03-10] MEDS ORDERED: XANAX0.5 M1 PO (16:30)
== END 2017-02-09 08:41 | disposition home or self-care (01) ==
LOC: CED 05:09
PROVIDERS: Emergency Medicine
DX: I13.2 Hypertensive heart and chronic kidney disease with heart failure and with stage 5 chronic kidney disease, or end stage renal disease (principal); I50.9 Heart failure, unspecified; N18.6 End stage renal disease; F41.9 Anxiety disorder, unspecified; Z88.2 Allergy status to sulfonamides
CPT/HCPCS: 36415; 71010; 80048; 80076; 82553; 83605; 83880; 84484; 85025; 85610; 85730; 87040; 93005; 96374; 99285; J2405

== ENCOUNTER 2017-03-06 16:46 | Emergency (ER) | payer OTHER ==
[~2017-03-06] VITALS: Ht 167.6 cm; Wt 64.4 kg
--- NOTE | ~2017-03-06 | CT71 ---
[facility] A Service of [facility] RADIOLOGY TEXT RESULTS PATIENT: CHRISTEL HESS LOCATION: [facility] : [birth year] UNIT #: [id number] AGE: [address]: Stacy Maddox MD SEX: F ORDER DR: [id number] [facility] [address] [place], [place] [address] [id number] MR#: [id number] [facility] #: [id number] NAME: CHRISTEL HESS. : 1935 SEX: F STUDY DATE/TIME: 03/06/2017 18:07 UNIT: [facility] ROOM: STUDY DESCRIPTION: CT Head Wo Contrast Attending Physician: Stacy Maddox M.D. Ordering Physician: Stacy Maddox M.D. Primary Care Physician: Misty King M.D. MEDICAL IMAGING REPORT This report is preliminary unless electronic signature is present EXAM CT head without contrast, 03/06/2017 HISTORY 81-year-old female with head headache status post fall today. Hit right side of head. COMPARISON CT head 02/04/2015 TECHNIQUE Routine unenhanced axial images performed through the brain. This CT exam was performed with one or more of the following radiation dose reduction techniques: automatic exposure control, adjustment of mA and/or kV according to patient size, and iterative reconstruction. FINDINGS No hemorrhage, acute infarction, mass lesion, or abnormal extraaxial fluid collection. No midline shift or focal mass effect. Ventricular system normal in size and configuration. Mild generalized atrophy and mild chronic small vessel disease is stable. There is mild right frontoparietal scalp soft tissue swelling. No acute bony abnormality. Visualized paranasal sinuses are clear. Partial fluid opacification right-sided mastoid air cells. IMPRESSION 1. No acute intracranial abnormality. 2. Stable age-related atrophy and mild chronic small vessel disease. 3. Mild right frontoparietal scalp soft tissue swelling. No acute bony abnormality. 4. Partial fluid opacification of the right-sided mastoid air cells. [facility] A Service of [facility] RADIOLOGY TEXT RESULTS PATIENT: CHRISTEL HESS LOCATION: [facility] : 31 UNIT #: [id number] AGE: [address]: Stacy Maddox MD SEX: F ORDER DR: Dictated by... Ernie Robbins M.D. THIS IS AN ELECTRONICALLY VERIFIED REPORT Ernie Robbins M.D. at 03/07/2017 2:25 PM PAIGE/tejal TD: 03/07/2017 05:28 JOB #: [id number] MEDICAL IMAGING REPORT Page 1 of 1 COPY
[2017-03-10] MEDS ORDERED: ZYLOPRIM100 MG PO (05:42)
[2017-03-10] MEDS ORDERED: FLONASE 0.05% N16 G1 (05:43)
[2017-03-10] MEDS ORDERED: LASIX20 MG PO (10:05)
[2017-03-10] MEDS ORDERED: CRANBERRY200 MG PO (10:05)
[2017-03-10] MEDS ORDERED: VITAMIN D1000 UNIT PO (10:05)
[2017-03-10] MEDS ORDERED: LIPITOR20 MG PO (10:06)
[2017-03-10] MEDS ORDERED: NORVASC10 MG PO (10:06)
[2017-03-10] MEDS ORDERED: LOSARTAN POTASS50 MG PO (10:06)
[2017-03-10] MEDS ORDERED: TOPROL XL100 MG PO (10:06)
[2017-03-10] MEDS ORDERED: CATAPRES0.1 MG PO (15:02)
[2017-03-10] MEDS ORDERED: XANAX0.5 M1 PO (16:30)
== END 2017-03-06 19:20 | disposition home or self-care (01) ==
LOC: CED 16:46
DX: S00.03XA Contusion of scalp, initial encounter (principal); I12.0 Hypertensive chronic kidney disease with stage 5 chronic kidney disease or end stage renal disease; N18.6 End stage renal disease; D63.1 Anemia in chronic kidney disease; Z99.2 Dependence on renal dialysis; W18.30XA Fall on same level, unspecified, initial encounter; Y92.009 Unspecified place in unspecified non-institutional (private) residence as the place of occurrence of the external cause
CPT/HCPCS: 70450; 90471; 90715; 99283

== ENCOUNTER → 2017-03-10 | Day surgery (SDC) | payer OTHER ==
[2017-02-09 06:38] LABS: POC - CKMB 1.2 ng/mL (0.0-7.9); POC - TROPONIN <0.05 ng/mL (<=0.05)
[~2017-03-10] MED LIST changes: +CATAPRES0.1 MG PO; +CRANBERRY200 MG PO; +FLONASE 0.05% N16 G1; +LASIX20 MG PO; +NORVASC10 MG PO
--- NOTE | ~2017-03-10 | OR ---
Unit #: [id number] #: [id number] Patient: CHRISTEL HESS [id number] [address] [address] [id number] O MR#: [id number] NAME: CHRISTEL HESS. ROOM: Date of Procedure: 03/10/2017 Admission Date: 03/10/2017 Surgeon: Eliud Roman M.D. : 1935 Attending Physician: Eliud Roman M.D. Primary Care Physician: Misty King M.D. PROCEDURE OPERATIVE NOTE PROCEDURE PERFORMED Esophagogastroduodenoscopy with biopsy. INDICATIONS Patient with severe anemia, blood loss, weight loss undergoing evaluation upper endoscopy. MEDICATIONS Monitored anesthesia. POSTOPERATIVE FINDINGS 1. Normal esophagus. 2. (1) duodenitis and gastritis. Biopsies taken in both places. PLAN 1. Followup on pathology report. 2. Continue PPI therapy for now. DESCRIPTION OF PROCEDURE Patient was explained the procedure, risks, and benefits along with risks and benefits of anesthesia. She was brought to the endoscopy room. Propofol anesthesia was given. Bite block was placed. Scope was passed down the mouth into esophagus, stomach, duodenum. Findings as described. Biopsies taken. Gently, I pulled the scope out of patient's mouth. She tolerated it well. Dictated by... Harriet Orr/jeffry TD: 03/10/2017 14:20 JOB #: [id number] Unit #: [id number] #: [id number] Patient: CHRISTEL HESS PROCEDURE OPERATIVE NOTE Page 1 of 1 X Eliud Roman MD X PROCEDURE OPERATIVE NOTE
== END | disposition home or self-care (01) ==
LOC: COPS 06:33
PROVIDERS: Internal Medicine
DX: K29.50 Unspecified chronic gastritis without bleeding (principal); K29.80 Duodenitis without bleeding; D50.0 Iron deficiency anemia secondary to blood loss (chronic); K21.9 Gastro-esophageal reflux disease without esophagitis; I12.0 Hypertensive chronic kidney disease with stage 5 chronic kidney disease or end stage renal disease; N18.6 End stage renal disease; M10.9 Gout, unspecified; Z88.2 Allergy status to sulfonamides; Z79.899 Other long term (current) drug therapy; Z98.890 Other specified postprocedural states; Z99.2 Dependence on renal dialysis
CPT/HCPCS: 82553; 84484; 88305; 88312